=== PATIENT | female | born 2000 | race Hispanic/Latino ===

== ENCOUNTER 2023-08-14 15:14 | Inpatient (IN) | payer OTHER ==
[2023-08-17] MEDS ORDERED: Ondansetron PF 4 MG/2 ML Vial IVP PRN ×4 (01:52→22:40)
[2023-08-17] MEDS ORDERED: Acetaminophen 500 MG TAB PO PRN (01:52)
[2023-08-17] MEDS ORDERED: fentaNYL 50 mcg/mL 1 mL Vial SLOW IVP PRN ×2 (01:52→22:40)
[2023-08-17] MEDS ORDERED: Methylergonovine 0.2 MG/ML VIAL IM PRN (01:52)
[2023-08-17] MEDS ORDERED: Diphenoxylate HCl/Atropine Tablet PO PRN (01:52)
[2023-08-17] MEDS ORDERED: Ibuprofen 800 MG TAB PO PRN (01:52)
[2023-08-17] MEDS ORDERED: Lidocaine 1% (PF) 30 ML VIAL SC PRN (01:52)
[2023-08-17] MEDS ORDERED: HYDROcodone/Acetaminophen 5/325 mg Tablet PO PRN (01:52)
[2023-08-17] MEDS ORDERED: hydrALAZINE 20 MG/ML VIAL SLOW IVP PRN (01:52)
[2023-08-17] MEDS ORDERED: Oxytocin 30 units/NS 500 ML 500 ML IV SCH ×3 (01:52)
[2023-08-17] MEDS ORDERED: Misoprostol 200 MCG TAB PR PRN (01:52)
[2023-08-17] MEDS ORDERED: Promethazine HCl 25 MG/ML VIAL IM PRN ×3 (01:52→22:40)
[2023-08-17] MEDS ORDERED: Carboprost 250 MCG/ML AMP IM PRN (01:52)
[2023-08-17] MEDS ORDERED: Tranexamic Acid 1,000 MG/10 ML VIAL IVP PRN (01:52)
[2023-08-17] MEDS: Lactated Ringer's 1,000 ML IV SCH (02:05)
[2023-08-17 02:29] VITALS: BMI 33.8
[2023-08-17 02:48] LABS: Hematocrit 35.3 % (34.9-44.5); Hemoglobin 11.6 g/dL (12.0-15.5); Mean Corpuscular HGB CONC 32.9 g/dL (32.0-36.0); Mean Corpuscular Hemoglobin 27.6 pg (27.0-33.0); Mean Platelet Volume 11.2 fl (7.4-10.4); Platelet Count 238 10x3/uL (150-450); RBC Distribution Width 16.6 % (11.5-14.5); White Blood Cell (WBC) Count 9.2 10x3/uL (3.5-10.5)
[2023-08-17 03:20] LABS: HBSAg Index 0.19 S/CO (0-0.99); Hep B Surf Ag - L&D Non-Reactive S/CO (NonReactive)
[2023-08-17 03:21] LABS: Syphilis Antibody Nonreactive (Nonreactive); Syphilis Antibody Index 0.06 S/CO (<1.00 Non-Reactive)
[2023-08-17] MEDS: Misoprostol 100 MCG TAB VAG SCH (03:30)
[2023-08-17] MEDS ORDERED: fentaNYL/Ropivacaine Epidural 100 ML ONE (13:31)
[2023-08-17] MEDS ORDERED: ePHEDrine Sulfate 50 MG/10 ML VIAL SLOW IVP PRN (13:51)
[2023-08-17] MEDS ORDERED: Naloxone HCl 0.4 mg/ml Vial IVP PRN ×4 (13:51→22:40)
[2023-08-17] MEDS ORDERED: diphenhydrAMINE 50 MG/ML VIAL IVP PRN ×2 (13:51→22:40)
[2023-08-17] MEDS ORDERED: Moisturizing Cream (Eucerin) 113 GM JAR TOP PRN ×2 (13:51→22:40)
[2023-08-17] MEDS ORDERED: Lactated Ringer's 500 ML IV PRN (13:51)
[2023-08-17] MEDS ORDERED: Acetaminophen 325 MG TAB PO PRN (13:51)
[2023-08-17] MEDS ORDERED: fentaNYL 2 mcg/Ropivacaine 0.2% Epidural 100 ML CADD EPIDURAL SCH (14:00)
[2023-08-17] MEDS ORDERED: Communication Order-Pharmacy FS SCH ×2 (14:00→22:45)
[2023-08-17] MEDS ORDERED: CEFAZOLIN 2 GM VIAL ONE (21:03)
[2023-08-17] MEDS ORDERED: Azithromycin 500 MG VIAL ONE (21:03)
[2023-08-17] MEDS ORDERED: fentaNYL 50 mcg/mL 1 mL Vial ONE ×2 (21:19→22:24)
[2023-08-17] MEDS ORDERED: Oxytocin 10 UNITS/ML VIAL ONE ×2 (21:36→22:50)
[2023-08-17] MEDS ORDERED: Dexamethasone 4 mg/ml Vial ONE ×2 (21:36→22:50)
[2023-08-17] MEDS ORDERED: Ondansetron PF 4 MG/2 ML Vial ONE ×2 (21:36→22:50)
[2023-08-17] MEDS ORDERED: Lidocaine 2% MPF 10 ML AMP (For Epidural Use) ONE (21:45)
[2023-08-17] MEDS ORDERED: Morphine PF 10 MG/10 ML VIAL ONE (21:45)
[2023-08-17] MEDS ORDERED: KETAMINE 100 MG/ML (5ML VIAL) ONE (21:48)
[2023-08-17] MEDS ORDERED: Glycopyrrolate 0.2 MG/ML 5 ML SYRINGE ONE (22:08)
[2023-08-17] MEDS ORDERED: Meperidine HCl/PF 25 MG/ML VIAL SLOW IVP PRN (22:40)
[2023-08-17] MEDS ORDERED: Ketorolac Tromethamine 30 MG/ML VIAL IVP PRN (22:40)
[2023-08-17] MEDS ORDERED: Naloxone HCl 0.4 mg/ml Vial IV PRN (22:40)
[2023-08-17] MEDS ORDERED: Promethazine HCl 25 MG SUPP PR PRN (22:40)
[2023-08-17] MEDS ORDERED: HYDROmorphone 0.5 MG/0.5 ML SYRINGE SLOW IVP PRN (22:40)
[2023-08-17] MEDS ORDERED: Ketorolac Tromethamine 30 MG/ML VIAL IVP SCH (22:45)
[2023-08-18] MEDS ORDERED: Meperidine HCl/PF 25 MG/ML VIAL IM PRN (01:54)
[2023-08-18] MEDS ORDERED: Lanolin Ointment 7 GM TUBE TOP PRN (01:54)
[2023-08-18] MEDS ORDERED: Oxytocin 30 units/NS 500 ML 500 ML IV SCH (01:54)
[2023-08-18] MEDS ORDERED: Boostrix 0.5 ML (Tdap) VIAL (>/=7 yrs of age) IM ONE (01:54)
[2023-08-18] MEDS ORDERED: Simethicone Chewable 80 MG TAB PO PRN (01:54)
[2023-08-18] MEDS ORDERED: Bisacodyl 10 MG SUPP PR PRN (01:54)
[2023-08-18] MEDS ORDERED: diphenhydrAMINE 25 MG CAP PO PRN (01:54)
[2023-08-18] MEDS ORDERED: Promethazine HCl 25 MG/ML VIAL IM PRN (01:54)
[2023-08-18] MEDS ORDERED: hydrALAZINE 20 MG/ML VIAL SLOW IVP PRN (01:54)
[2023-08-18] MEDS ORDERED: Ondansetron PF 4 MG/2 ML Vial IVP PRN (01:54)
[2023-08-18] MEDS: Lactated Ringer's 1,000 ML IV SCH ×2 (03:02→03:03)
[2023-08-18] MEDS: Misoprostol 100 MCG TAB VAG SCH (03:03)
[2023-08-18 04:52] LABS: Hematocrit 30.6 % (34.9-44.5); Hemoglobin 10.2 g/dL (12.0-15.5); Mean Corpuscular HGB CONC 33.3 g/dL (32.0-36.0); Mean Corpuscular Hemoglobin 28.4 pg (27.0-33.0); Mean Corpuscular Volume 85.2 fl (81.6-98.3); Platelet Count 210 10x3/uL (150-450); RBC Distribution Width 16.9 % (11.5-14.5); Red Blood Cell (RBC) Count 3.59 10x6/uL (3.90-5.03)
[2023-08-18] MEDS ORDERED: Ketorolac Tromethamine 30 MG/ML VIAL IVP SCH (05:00)
[2023-08-18] MEDS: Prenatal Vitamin 1 TAB PO SCH (08:05)
[2023-08-18] MEDS: Docusate 100 MG CAP PO SCH ×2 (08:05→20:01)
[2023-08-18] MEDS: Ketorolac Tromethamine 30 MG/ML VIAL IVP SCH ×3 (08:06→19:55)
[2023-08-18] MEDS ORDERED: HYDROcodone/Acetaminophen 5/325 mg Tablet PO PRN (10:45)
[2023-08-18] MEDS: Ferrous Sulfate 325 MG TAB PO SCH ×2 (11:16→19:33)
[2023-08-18] MEDS: HYDROcodone/Acetaminophen 5/325 mg Tablet PO PRN (13:23)
[2023-08-19] MEDS: Ketorolac Tromethamine 30 MG/ML VIAL IVP SCH (01:59)
[2023-08-19] MEDS: HYDROcodone/Acetaminophen 5/325 mg Tablet PO PRN ×3 (04:09→13:18)
[2023-08-19] MEDS: Ibuprofen 800 MG TAB PO SCH ×2 (08:54→15:02)
[2023-08-19] MEDS: Prenatal Vitamin 1 TAB PO SCH (08:55)
[2023-08-19] MEDS: Docusate 100 MG CAP PO SCH (08:55)
[2023-08-19] MEDS: Ferrous Sulfate 325 MG TAB PO SCH (12:06)
[2023-08-19 16:08] VITALS: BP 118/72; TEMP 98
== END 2023-08-19 17:25 | disposition home or self-care (01) | DRG 788 ==
LOC: CSHLD 08-17 01:42 → CSHPP 08-18 01:05
PROVIDERS: ADMIT Family Medicine; ATTEND Family Medicine
PROC: 10D00Z1 Extraction of Products of Conception, Low, Open Approach (ICD-10-PCS; principal; 2023-08-17)
PROC: 10907ZC Drainage of Amniotic Fluid, Therapeutic from Products of Conception, Via Natural or Artificial Opening (ICD-10-PCS; 2023-08-17)
DX: O76 Abnormality in fetal heart rate and rhythm complicating labor and delivery (principal); O48.0 Post-term pregnancy; Z3A.40 40 weeks gestation of pregnancy; Z37.0 Single live birth
CPT/HCPCS: 36415; 51702; 85027; 86780; 86850; 86900; 86901; 87340; J1100; J1885; J2274; J2405; J2590; J3010; J7120

== ENCOUNTER 2023-08-23 21:33 | Inpatient (IN) | payer OTHER ==
[~2023-08-23 21:33] MED LIST: Iopamidol 300 61% 100 ML VIAL FS ONE
[2023-08-23] MEDS ORDERED: Ketorolac Tromethamine 30 MG/ML VIAL ONE (22:18)
[2023-08-23] MEDS ORDERED: Piperacillin/Tazobactam 4.5 GM VIAL ONE (22:19)
[2023-08-23 22:21] LABS: #Eosinphils 0.3 10x3/uL (0.0-0.5); #Monocytes 1.3 10x3/uL (0.0-1.1); #Neutrophils 10.7 10x3/uL (1.5-8.4); %Basophils 0.3 % (0.0-2.0); %Eosinophils 2.1 % (0.0-6.0); %Lymphocytes 8.7 % (18.0-47.0); %Monocytes 9.5 % (0.0-10.0); %Neutrophils 78.7 % (40.0-75.0); Hematocrit 26.8 % (34.9-44.5); Hemoglobin 8.8 g/dL (12.0-15.5); Mean Corpuscular HGB CONC 32.8 g/dL (32.0-36.0); Mean Corpuscular Hemoglobin 28.2 pg (27.0-33.0); Mean Corpuscular Volume 85.9 fl (81.6-98.3); Mean Platelet Volume 9.7 fl (7.4-10.4); Platelet Count 362 10x3/uL (150-450); RBC Distribution Width 16.6 % (11.5-14.5); Red Blood Cell (RBC) Count 3.12 10x6/uL (3.90-5.03); White Blood Cell (WBC) Count 13.5 10x3/uL (3.5-10.5)
[2023-08-23 22:25] LABS: ALT (SGPT) 11 U/L (8-55); AST (SGOT) 15 U/L (5-34); Albumin 2.9 g/dL (3.5-5.0); Alkaline Phosphatase 147 U/L (40-110); Anion Gap 15 mmol/L (10-20); BUN (Urea Nitrogen) 10 mg/dL (7.0-18.7); Bilirubin, Total 0.2 mg/dL (0.2-1.2); Calc. Creatinine Clearance 0 mL/min (70-130); Calcium 8.5 mg/dL (7.8-10.44); Carbon Dioxide 21 mmol/L (22-29); Chloride 108 mmol/L (98-107); Estimated GFR 127; Globulin 2.9 g/dL (2.4-3.5); Glucose 141 mg/dL (70-105); Potassium 3.5 mmol/L (3.5-5.1); Protein, Total 5.8 g/dL (6.0-8.3); Sodium 140 mmol/L (136-145)
[2023-08-23] MEDS ORDERED: VANCOMYCIN 1.5 GM in Sodium Chloride 0.9% 500 ML IVPB SCH (22:30)
[2023-08-23] MEDS ORDERED: HYDROcodone/Acetaminophen 5/325 mg Tablet PO PRN (23:43)
[2023-08-23] MEDS ORDERED: Ibuprofen 800 MG TAB PO PRN (23:43)
[2023-08-23] MEDS ORDERED: Piperacillin/Tazobactam 3.375 GM in Sodium Chloride 0.9% 100 ML IVPB SCH (23:59)
[2023-08-24] MEDS: Lactated Ringer's 1,000 ML IV SCH ×3 (02:30→21:54)
[2023-08-24] MEDS: Piperacillin/Tazobactam 3.375 GM in Sodium Chloride 0.9% 100 ML IVPB SCH ×3 (02:31→19:04)
[2023-08-24 04:17] LABS: #Eosinphils 0.3 10x3/uL (0.0-0.5); #Monocytes 0.8 10x3/uL (0.0-1.1); #Neutrophils 9.5 10x3/uL (1.5-8.4); %Basophils 0.3 % (0.0-2.0); %Eosinophils 2.3 % (0.0-6.0); %Lymphocytes 9.7 % (18.0-47.0); %Monocytes 7.1 % (0.0-10.0); %Neutrophils 79.7 % (40.0-75.0); Hematocrit 25.5 % (34.9-44.5); Hemoglobin 8.5 g/dL (12.0-15.5); Mean Corpuscular HGB CONC 33.3 g/dL (32.0-36.0); Mean Corpuscular Hemoglobin 28.7 pg (27.0-33.0); Mean Corpuscular Volume 86.1 fl (81.6-98.3); Mean Platelet Volume 9.7 fl (7.4-10.4); Platelet Count 324 10x3/uL (150-450); RBC Distribution Width 16.9 % (11.5-14.5); Red Blood Cell (RBC) Count 2.96 10x6/uL (3.90-5.03); White Blood Cell (WBC) Count 11.9 10x3/uL (3.5-10.5)
[2023-08-24 04:26] LABS: ALT (SGPT) 10 U/L (8-55); AST (SGOT) 13 U/L (5-34); Albumin 2.6 g/dL (3.5-5.0); Alkaline Phosphatase 122 U/L (40-110); Anion Gap 15 mmol/L (10-20); BUN (Urea Nitrogen) 10 mg/dL (7.0-18.7); Bilirubin, Total 0.2 mg/dL (0.2-1.2); Calc. Creatinine Clearance 0 mL/min (70-130); Calcium 8.2 mg/dL (7.8-10.44); Carbon Dioxide 19 mmol/L (22-29); Chloride 111 mmol/L (98-107); Estimated GFR 132; Globulin 2.6 g/dL (2.4-3.5); Glucose 115 mg/dL (70-105); Potassium 3.9 mmol/L (3.5-5.1); Protein, Total 5.2 g/dL (6.0-8.3); Sodium 141 mmol/L (136-145)
[2023-08-24] MEDS: Acetaminophen 325 MG TAB PO PRN ×2 (15:18→22:49)
[2023-08-24] MEDS ORDERED: Vancomycin 1.5 GRAM/300 ML BAG IVPB SCH (16:00)
[2023-08-24] MEDS: Vancomycin 1 GM in Sodium Chloride 0.9% 250 ML 250 ML IVPB SCH (16:45)
[2023-08-25] MEDS: Vancomycin 1 GM in Sodium Chloride 0.9% 250 ML 250 ML IVPB SCH ×3 (00:55→17:21)
[2023-08-25] MEDS: Piperacillin/Tazobactam 3.375 GM in Sodium Chloride 0.9% 100 ML IVPB SCH ×2 (03:41→11:44)
[2023-08-25] MEDS: Lactated Ringer's 1,000 ML IV SCH (03:46)
[2023-08-25 04:29] LABS: #Eosinphils 0.5 10x3/uL (0.0-0.5); #Monocytes 0.8 10x3/uL (0.0-1.1); %Basophils 0.4 % (0.0-2.0); %Lymphocytes 12.9 % (18.0-47.0); %Monocytes 8.2 % (0.0-10.0); %Neutrophils 72.4 % (40.0-75.0); Mean Corpuscular HGB CONC 32.1 g/dL (32.0-36.0); Mean Platelet Volume 9.5 fl (7.4-10.4); Platelet Count 365 10x3/uL (150-450); RBC Distribution Width 16.5 % (11.5-14.5); Red Blood Cell (RBC) Count 3.22 10x6/uL (3.90-5.03); White Blood Cell (WBC) Count 9.6 10x3/uL (3.5-10.5)
[2023-08-25 04:37] LABS: Anion Gap 15 mmol/L (10-20); BUN (Urea Nitrogen) 10 mg/dL (7.0-18.7); Calc. Creatinine Clearance 198 mL/min (70-130); Calcium 8.3 mg/dL (7.8-10.44); Carbon Dioxide 19 mmol/L (22-29); Chloride 109 mmol/L (98-107); Estimated GFR 133; Glucose 108 mg/dL (70-105); Potassium 3.8 mmol/L (3.5-5.1); Sodium 139 mmol/L (136-145)
[2023-08-25] MEDS: Ferrous Sulfate 325 MG TAB PO SCH ×2 (08:20→17:21)
[2023-08-25] MEDS: Clindamycin 150 MG CAP PO SCH (21:20)
[2023-08-26] MEDS: Piperacillin/Tazobactam 3.375 GM in Sodium Chloride 0.9% 100 ML IVPB SCH (00:29)
[2023-08-26] MEDS: Acetaminophen 325 MG TAB PO PRN (00:30)
[2023-08-26] MEDS: Clindamycin 150 MG CAP PO SCH ×2 (05:57→12:49)
[2023-08-26] MEDS: Ferrous Sulfate 325 MG TAB PO SCH (09:43)
[2023-08-26 10:50] VITALS: BP 131/77; TEMP 98.8
== END 2023-08-26 16:59 | disposition home or self-care (01) | DRG 776 ==
LOC: CSHERS 21:33 → CSHPED 22:25
PROVIDERS: ADMIT Family Medicine; ATTEND Family Medicine
DX: O86.01 Infection of obstetric surgical wound, superficial incisional site (principal); O90.81 Anemia of the puerperium; Z98.891 History of uterine scar from previous surgery; Z83.3 Family history of diabetes mellitus; Y83.8 Other surgical procedures as the cause of abnormal reaction of the patient, or of later complication, without mention of misadventure at the time of the procedure; T80.89XA Other complications following infusion, transfusion and therapeutic injection, initial encounter; Y84.8 Other medical procedures as the cause of abnormal reaction of the patient, or of later complication, without mention of misadventure at the time of the procedure
CPT/HCPCS: 36415; 74177; 80048; 80053; 82570; 83605; 84156; 85025; 87040; 87070; 87077; 87186; 87205; 93005; 96365; 96375; 97139; J1885; J2543; J3370; J3490; J7030; J7050; J7120; Q9967

== ENCOUNTER 2023-08-31 08:15 | Outpatient (CLI) | payer OTHER | END 2023-08-31 08:16 | disposition home or self-care (01) | LOC: CSHWCC 08:15 | PROVIDERS: ATTEND Preventive Medicine Undersea and Hyperbaric Medicine | DX: T81.89XD Other complications of procedures, not elsewhere classified, subsequent encounter (principal) | CPT/HCPCS: 10060; 99203; G0463 ==

== ENCOUNTER 2023-09-02 13:40 | Outpatient (CLI) | payer OTHER | END 2023-09-02 13:41 | disposition home or self-care (01) | LOC: CSHWCC 13:40 | PROVIDERS: ATTEND Preventive Medicine Undersea and Hyperbaric Medicine | DX: T81.89XD Other complications of procedures, not elsewhere classified, subsequent encounter (principal) | CPT/HCPCS: 87070; 87205; 97602 ==

== ENCOUNTER 2023-09-05 11:40 | Outpatient (CLI) | payer OTHER | END 2023-09-05 11:41 | disposition home or self-care (01) | LOC: CSHWCC 11:40 | PROVIDERS: ATTEND Physician Assistant | DX: T81.89XD Other complications of procedures, not elsewhere classified, subsequent encounter (principal) | CPT/HCPCS: 97602 ==

== ENCOUNTER 2023-09-12 08:17 | Outpatient (CLI) | payer OTHER | END 2023-09-12 08:18 | disposition home or self-care (01) | LOC: CSHWCC 08:17 | PROVIDERS: ATTEND Physician Assistant | DX: T81.32XD Disruption of internal operation (surgical) wound, not elsewhere classified, subsequent encounter (principal) | CPT/HCPCS: 99211; G0463 ==

== ENCOUNTER 2023-09-20 08:22 | Outpatient (CLI) | payer OTHER | END 2023-09-20 08:23 | disposition home or self-care (01) | LOC: CSHWCC 08:22 | PROVIDERS: ATTEND Physician Assistant | DX: T81.31XD Disruption of external operation (surgical) wound, not elsewhere classified, subsequent encounter (principal) | CPT/HCPCS: 99212; G0463 ==

== ENCOUNTER 2023-10-04 10:30 | Outpatient (CLI) | payer OTHER | END 2023-10-04 10:31 | disposition home or self-care (01) | LOC: CSHWCC 10:30 | PROVIDERS: ATTEND Physician Assistant | DX: T81.31XD Disruption of external operation (surgical) wound, not elsewhere classified, subsequent encounter (principal) | CPT/HCPCS: 99212; G0463 ==

== ENCOUNTER 2023-10-18 08:21 | Outpatient (CLI) | payer OTHER | END 2023-10-18 08:22 | disposition home or self-care (01) | LOC: CSHWCC 08:21 | PROVIDERS: ATTEND Physician Assistant | DX: T81.31XD Disruption of external operation (surgical) wound, not elsewhere classified, subsequent encounter (principal) | CPT/HCPCS: 99212; G0463 ==

== ENCOUNTER 2024-04-03 09:44 | Emergency (ER) | payer OTHER ==
[2024-04-03 10:20] LABS: Bilirubin Neg (Negative); Blood, Urine 10 (Negative); Clarity Clear (Clear); Glucose, Urine (Dipstick) Normal (Negative); Ketone, Urine Negative (Negative); Leukocyte 25 (Negative); Nitrite Negative (Negative); Protein, Urine (Dipstick) Negative (Neg-Trace); Urobilinogen Normal mg/dL (Less than 2)
[2024-04-03 10:26] LABS: Pregnancy Test - Urine (BHCG) Negative (Negative); Pregu Control Background? CLEAR/WHITE (CLR/WHITE); Pregu Control Bar Appear? YES (CONTROL BAR)
[2024-04-03 10:40] LABS: Bacteria/HPF Rare-Few HPF (None Seen); CAUTI Indications for Culture Pelvic or flank pain; RBC/HPF 0-3 HPF (0-3); Squamous Epithelial 0-3 HPF (0-3); WBC/HPF 0-3 HPF (0-3)
[2024-04-03 10:41] LABS: Urine Culture Reflex No No
== END 2024-04-03 12:25 | disposition home or self-care (01) ==
LOC: CSHERS 09:44
DX: K59.00 Constipation, unspecified (principal)
CPT/HCPCS: 71045; 74019; 81001; 81025

== ENCOUNTER 2025-09-14 20:41 | Day surgery (SDC) | payer MEDICAID ==
[2025-09-14 21:06] VITALS: BMI 34.0
[2025-09-14] MEDS ORDERED: hydrALAZINE 20 MG/ML VIAL SLOW IVP PRN (21:56)
[2025-09-14 22:23] LABS: Fetal Membranes Rupture No Membranes Rupture (No Rupture)
[2025-09-14] MEDS: metroNIDAZOLE 500 MG TAB PO SCH (23:46)
[2025-09-16] MEDS ORDERED: Ondansetron PF 4 MG/2 ML Vial IVP PRN (04:41)
[2025-09-16] MEDS ORDERED: Carboprost 250 MCG/ML AMP IM PRN (04:41)
[2025-09-16] MEDS ORDERED: Methylergonovine 0.2 MG/ML VIAL IM PRN (04:41)
[2025-09-16] MEDS ORDERED: hydrALAZINE 20 MG/ML VIAL SLOW IVP PRN (04:41)
[2025-09-16] MEDS ORDERED: Lidocaine 1% (PF) 30 ML VIAL SC PRN (04:41)
[2025-09-16] MEDS ORDERED: Tranexamic Acid 1,000 MG/10 ML VIAL IVP PRN (04:41)
[2025-09-16] MEDS ORDERED: Diphenoxylate HCl/Atropine Tablet PO PRN ×2 (04:41)
[2025-09-16] MEDS ORDERED: Ibuprofen 800 MG TAB PO PRN (04:41)
[2025-09-16] MEDS ORDERED: Oxytocin 30 units/NS 500 ML 500 ML IV SCH (04:45)
[2025-09-16] MEDS ORDERED: Penicillin G Potassium 5 MILL.UNITS in Sodium Chloride 0.9% 100 ML IVPB SCH (04:45)
[2025-09-16] MEDS ORDERED: Penicillin G 2.5 MILL.units 2.5 MILL.UNITS in Premix 1 BAG IVPB SCH (09:00)
== END 2025-09-14 23:48 | disposition home or self-care (01) ==
LOC: CSHLD/OP 20:41
PROVIDERS: ATTEND Family Medicine
DX: O47.1 False labor at or after 37 completed weeks of gestation (principal); O34.211 Maternal care for low transverse scar from previous cesarean delivery; O23.593 Infection of other part of genital tract in pregnancy, third trimester; B96.89 Other specified bacterial agents as the cause of diseases classified elsewhere; B95.1 Streptococcus, group B, as the cause of diseases classified elsewhere; Z3A.40 40 weeks gestation of pregnancy; Z79.899 Other long term (current) drug therapy
CPT/HCPCS: 84112; 87480; 87510; 87660; 99285